=== PATIENT | female | born 1955 | race Caucasian/White ===

== ENCOUNTER 2020-01-23 13:29 | Emergency (ER) | payer MEDICARE, OTHER ==
[2020-01-23] MEDS ORDERED: BABY ASPIRIN 81 MG CHEW PO ONE (13:34)
--- NOTE | 2020-01-23 13:34 | ERPHSYRPT ---
- History of Present Illness Time Seen by Provider: 01/23/20 13:33 Historian: patient, family Exam Limitations: no limitations Physician History: This is a 64-year-old white female who has history of hypertension and presented to the walk-in clinic with complaints of nasal congestion with drainage into her chest and chest tightness. Because of the complaint of chest tightness patient was referred to the emergency department. Patient has no history herself of coronary artery disease. In the last week she did not take her temperature but has felt feverish. She has had no nausea vomiting or diarrhea. She has occasional cough when there is drainage present. She has no chest pain. She is not short of breath. She has no wheezing present. Timing/Duration: week(s) (1), worse Activities at Onset: none Quality: tightness Location: substernal, central Chest Pain Radiation: no radiation Severity of Pain-Max: none Severity of Pain-Current: none Modifying Factors: Improves With: coughing (Occasional) Associated Symptoms: cough Prior Chest Pain/Cardiac Workup: no prior chest pain Nitro Today/Relief: no nitro taken today Aspirin Treatment Today: 325 mg x 1 Allergies/Adverse Reactions: No Known Drug Allergies Allergy (Unverified 01/23/20 13:36) Home Medications: Lisinopril/Hydrochlorothiazide [Lisinopril-Hctz 20-12.5 mg Tab] 20 mg PO DAILY 01/23/20 [History] Travel Risk - International Travel Have you traveled outside of the country in past 3 weeks: No - Coronavirus Screening Are you exhibiting any of the following symptoms?: No Close contact with a COVID-19 positive Pt in past 14-21 Days: No - Review of Systems Constitutional: No Symptoms Eyes: No Symptoms Ears, Nose, & Throat: No Symptoms Respiratory: Cough Cardiac: No Symptoms Abdominal/Gastrointestinal: No Symptoms Genitourinary Symptoms: No Symptoms Musculoskeletal: No Symptoms Skin: No Symptoms Neurological: No Symptoms Psychological: No Symptoms Endocrine: No Symptoms Hematologic/Lymphatic: No Symptoms Immunological/Allergic: No Symptoms All Other Systems: Reviewed and Negative - Past Medical History Pertinent Past Medical History: Yes Neurological History: No Pertinent History ENT History: No Pertinent History Cardiac History: Hypertension Respiratory History: No Pertinent History Endocrine Medical History: No Pertinent History Musculoskeletal History: No Pertinent History GI Medical History: No Pertinent History History: No Pertinent History Psycho-Social History: No Pertinent History Female Reproductive Disorders: No Pertinent History - Past Surgical History Past Surgical History: Yes Neuro Surgical History: No Pertinent History Cardiac: No Pertinent History Respiratory: No Pertinent History Gastrointestinal: No Pertinent History Genitourinary: No Pertinent History Musculoskeletal: No Pertinent History Female Surgical History: No Pertinent History - Nursing Vital Signs Nursing Vital Signs: Initial Vital Signs Pulse Rate 104 H 01/23/20 13:30 Respiratory Rate 18 01/23/20 13:30 Blood Pressure 169/91 01/23/20 13:30 O2 Sat by Pulse Oximetry 99 01/23/20 13:30 Pain Scale Pain Intensity 0 - Physical Exam General Appearance: no apparent distress, alert, anxiety Eye Exam: PERRL/EOMI, eyes nml inspection Ears, Nose, Throat Exam: normal ENT inspection, moist mucous membranes Neck Exam: normal inspection, non-tender, supple, full range of motion Respiratory Exam: normal breath sounds, lungs clear, airway intact, No chest tenderness, No respiratory distress Cardiovascular Exam: regular rate/rhythm, normal heart sounds, normal peripheral pulses Gastrointestinal/Abdomen Exam: soft, normal bowel sounds, No tenderness Pelvic Exam: not done Rectal Exam: not done Back Exam: normal inspection, normal range of motion, No CVA tenderness, No vertebral tenderness Extremity Exam: normal inspection, normal range of motion, pelvis stable Neurologic Exam: alert, oriented x 3, cooperative, 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 On this EKG there is a short [place] interval. There is nonspecific T abnormalities diffusely.) Ordered Tests: Active Orders 24 hr Category Date Time Status Fish Receiver STAT Care 01/23/20 13:34 Active EKG-ER Only STAT Care 01/23/20 13:34 Active IV Insertion STAT Care 01/23/20 13:34 Active Pulse Oximetry (ED) STAT Care 01/23/20 13:34 Active CHEST 1 VIEW (PORTABLE) Stat Exams 01/23/20 13:34 Completed CHEST WITH CONTRAST [CT] Stat Exams 01/23/20 14:34 Completed BMP Stat Lab 01/23/20 15:25 Completed CBC W DIFF Stat Lab 01/23/20 13:40 Completed CMP Stat Lab 01/23/20 13:40 Completed D-DIMER QUANTITATIVE Stat Lab 01/23/20 13:40 Completed NT PRO BNP Stat Lab 01/23/20 13:40 Completed PROTIME WITH INR Stat Lab 01/23/20 13:40 Completed TROPONIN Q3H Lab 01/23/20 13:40 Completed TROPONIN Q3H Lab 01/24/20 01:45 Ordered Medication Summary Discontinued Medications Generic Name Dose Route Start Last Admin Trade Name Freq PRN Reason Stop Dose Admin Aspirin 324 mg 01/23/20 13:34 01/23/20 13:42 Baby Aspirin 81 Mg Chew PO 01/23/20 13:35 324 mg STAT ONE Administration Sodium Chloride 1,000 mls @ 999 mls/hr 01/23/20 14:33 01/23/20 16:55 Sodium Chloride 0.9% 1000 Ml IV 01/23/20 15:33 Infused .Q1H1M STA Infusion Sodium Chloride Confirm 01/23/20 14:40 Sodium Chloride 0.9% 1000 Ml Administered 01/23/20 14:41 Dose 1,000 mls @ ud .ROUTE .STK-MED ONE Ceftriaxone Sodium/Dextrose 1 g in 50 mls @ 100 mls/hr 01/23/20 16:55 Rocephin 1 Gm-D5w 50 Ml Bag IV 01/23/20 17:24 STAT STA Methylprednisolone Sodium Succinate 125 mg 01/23/20 16:55 Solu-Medrol 125 Mg IV 01/23/20 16:56 STAT ONE Lab/Rad Data: Laboratory Result Diagrams 01/23/20 13:40 01/23/20 15:25 Laboratory Results 01/23/20 01/23/20 01/23/20 Range/Units 15:25 13:40 13:40 WBC (4.0-10.5) K/mm3 RBC (4.1-5.4) M/mm3 Hgb (12.0-16.0) gm/dl Hct (35-47) % MCV (78-100) fl MCH (26-32) pg MCHC (32-36) g/dl RDW (11.5-14.0) % Plt Count (150-450) K/mm3 MPV (7.5-11.0) fl Gran % (36.0-66.0) % Eos # (Auto) (0-0.5) Absolute Lymphs (auto) (1.0-4.6) Absolute Monos (auto) (0.0-1.3) Lymphocytes % (24.0-44.0) % Monocytes % (0.0-12.0) % Eosinophils % (0.00-5.0) % Basophils % (0.0-0.4) % Absolute Granulocytes (1.4-6.9) Basophils # (0-0.4) PT 11.8 (9.95-12.35) SECONDS INR 1.04 (0.8-3.0) D-Dimer 893 H* (215-500) ng/mL Sodium 140 (137-145) mmol/L Potassium 3.9 (3.5-5.1) mmol/L Chloride 105 (98-107) mmol/L Carbon Dioxide 27 (22-30) mmol/L Anion Gap 12.5 (5-15) MEQ/L BUN 12 (7-17) mg/dL Creatinine 1.14 H (0.52-1.04) mg/dL Estimated GFR 50.8 ML/MIN Glucose 90 (74-106) mg/dL Calcium 8.5 (8.4-10.2) mg/dL Total Bilirubin (0.2-1.3) mg/dL AST (14-36) U/L ALT (0-35) U/L Alkaline Phosphatase (38-126) U/L Troponin I < 0.012 (0.000-0.034) ng/mL NT-Pro-B Natriuret Pep (0-900) pg/mL Serum Total Protein (6.3-8.2) g/dL Albumin (3.5-5.0) g/dL 01/23/20 01/23/20 Range/Units 13:40 13:40 WBC 6.0 (4.0-10.5) K/mm3 RBC 4.50 (4.1-5.4) M/mm3 Hgb 13.3 (12.0-16.0) gm/dl Hct 42.0 (35-47) % MCV 93.3 (78-100) fl MCH 29.6 (26-32) pg MCHC 31.7 L (32-36) g/dl RDW 13.8 (11.5-14.0) % Plt Count 274 (150-450) K/mm3 MPV 10.6 (7.5-11.0) fl Gran % 58.4 (36.0-66.0) % Eos # (Auto) 0.17 (0-0.5) Absolute Lymphs (auto) 1.73 (1.0-4.6) Absolute Monos (auto) 0.56 (0.0-1.3) Lymphocytes % 28.8 (24.0-44.0) % Monocytes % 9.3 (0.0-12.0) % Eosinophils % 2.8 (0.00-5.0) % Basophils % 0.7 (0.0-0.4) % Absolute Granulocytes 3.50 (1.4-6.9) Basophils # 0.04 (0-0.4) PT (9.95-12.35) SECONDS INR (0.8-3.0) D-Dimer (215-500) ng/mL Sodium 140 (137-145) mmol/L Potassium 3.5 (3.5-5.1) mmol/L Chloride 103 (98-107) mmol/L Carbon Dioxide 28 (22-30) mmol/L Anion Gap 12.1 (5-15) MEQ/L BUN 12 (7-17) mg/dL Creatinine 1.19 H (0.52-1.04) mg/dL Estimated GFR 48.4 ML/MIN Glucose 78 (74-106) mg/dL Calcium 9.2 (8.4-10.2) mg/dL Total Bilirubin 0.50 (0.2-1.3) mg/dL AST 23 (14-36) U/L ALT 12 (0-35) U/L Alkaline Phosphatase 70 (38-126) U/L Troponin I (0.000-0.034) ng/mL NT-Pro-B Natriuret Pep 161 (0-900) pg/mL Serum Total Protein 7.8 (6.3-8.2) g/dL Albumin 4.4 (3.5-5.0) g/dL - Progress Progress: re-examined, unchanged Air Movement: good Progress Note: 01/23/20 14:09 Chest x-ray shows no acute pulmonary process 01/23/20 17:29 CAT scan of the chest with contrast shows no pulmonary emboli and no pneumonia. There is no acute pulmonary process. Counseled pt/family regarding: lab results, diagnosis, need for follow-up, rad results - Departure Departure Disposition: Home Clinical Impression: Bronchitis Condition: Stable Critical Care Time: No Additional Instructions: Drink plenty of fluids. Take your medication as prescribed. Follow-up with your primary care doctor for persistent symptoms. Follow-up with your primary care doctor also discussed the right-sided lung and lymph nodes that are present on the CAT scan. Prescriptions: Prednisone 5 mg [Deltasone 5 mg] 5 mg PO TID #12 tablet Hydrocodone Bit/Acetaminophen [Hydrocodone-Acetaminophen Soln] 10 ml PO Q6H #120 ml Azithromycin 250 mg [Zithromax 250 MG TABLET] 250 mg PO ZPACK #6 tablet
[2020-01-23 13:47] LABS: BASOPHIL % 0.7 % (0.0-0.4); Basophil (Absolute #) 0.04 (0-0.4); Eosinophil % 2.8 % (0.00-5.0); Eosinophil (Absolute #) 0.17 (0-0.5); Hemoglobin 13.3 gm/dl (12.0-16.0); Lymphocyte (Absolute #) 1.73 (1.0-4.6); Lymphocytes % 28.8 % (24.0-44.0); Mean Cell Volume 93.3 fl (78-100); Mean Corpuscular Hemoglobin 29.6 pg (26-32); Mean Corpuscular Hgb Concent. 31.7 g/dl (32-36); Mean Platelet Volume 10.6 fl (7.5-11.0); Monocyte (Absolute #) 0.56 (0.0-1.3); Monocytes % 9.3 % (0.0-12.0); Neutrophil % 58.4 % (36.0-66.0); Platelet Count 274 K/mm3 (150-450); Red Cell Distribution Width 13.8 % (11.5-14.0)
--- NOTE | 2020-01-23 13:56 | XRAY ---
Indication: Chest tightness. Comparison: February 03, 2010. Portable chest remains hyperinflated and clear. Heart is not enlarged. Bony thorax intact again with mild degenerative changes. Impression: Nonacute hyperinflated chest.
[2020-01-23 14:02] LABS: INR 1.04 (0.8-3.0); PROTIME 11.8 SECONDS (9.95-12.35)
[2020-01-23 14:15] LABS: ALBUMIN 4.4 g/dL (3.5-5.0); ANION GAP 12.1 MEQ/L (5-15); BILIRUBIN,TOTAL 0.5 mg/dL (0.2-1.3); Calcium 9.2 mg/dL (8.4-10.2); Creatinine 1 1.19 mg/dL (0.52-1.04); Potassium 3.5 mmol/L (3.5-5.1); Total Protein 7.8 g/dL (6.3-8.2)
[2020-01-23] MEDS ORDERED: Sodium Chloride 0.9% 1000 ML 1,000 ML IV STA (14:33)
[2020-01-23] MEDS ORDERED: Sodium Chloride 0.9% 1000 ML 1,000 ML ONE (14:40)
[2020-01-23 15:46] LABS: ANION GAP 12.5 MEQ/L (5-15); Calcium 8.5 mg/dL (8.4-10.2); Creatinine 1 1.14 mg/dL (0.52-1.04); Potassium 3.9 mmol/L (3.5-5.1)
--- NOTE | 2020-01-23 16:35 | XRAY ---
Indication: Chest tightness. Elevated d-dimer. Multiple contiguous axial images obtained through the chest using 80 cc Isovue 370 contrast and PE protocol. Comparison: None There is good opacification of the pulmonary arteries to include the lobar and segmental branches. No filling defect or pulmonary embolus. Heart is not enlarged. Aorta is normal in course and caliber. No pathologic mediastinal/hilar lymphadenopathy. Lungs demonstrates minimal bibasilar atelectasis/scarring. Anterolateral right upper lobe demonstrates peripheral cluster of noncalcified nodules, largest 1.2 cm possibly granulomatous in this demographic. No infiltrate or effusion. Bony thorax intact with mild degenerative changes throughout the spine. Limited upper abdomen demonstrates a few hepatic cysts, largest 1.5 cm inferiorly. Tiny splenic calcified granuloma and cholecystectomy clips. Impression: 1. Negative pulmonary embolus. No acute cardiopulmonary abnormalities. 2. Peripheral right upper lobe noncalcified nodules possibly granulomatous. Outside comparison studies studies would be of benefit if available. If not, consider follow-up per Fleischner guidelines. 3. Incidental hepatic cysts.
[2020-01-23 16:42] VITALS: O2SAT 100
[2020-01-23] MEDS ORDERED: ROCEPHIN 1 Gm-D5w 50 ml Bag** 1 G/50 ML IVPB IV STA (16:55)
[2020-01-23] MEDS ORDERED: solu-MEDROL 125 MG IV ONE (16:55)
[2020-01-23] MEDS ORDERED: solu-MEDROL 125 MG ONE (17:33)
[2020-01-23] MEDS ORDERED: ROCEPHIN 1 Gm-D5w 50 ml Bag** 1 G/50 ML IVPB IV ONE (17:33)
[2020-01-23 17:52] VITALS: BP 161/101; PULSE 71
== END 2020-01-23 18:01 | disposition home or self-care (01) ==
LOC: ED 13:29
DX: J40 Bronchitis, not specified as acute or chronic (principal); I10 Essential (primary) hypertension
CPT/HCPCS: 36000; 36415; 71045; 71260; 80048; 80053; 83880; 84484; 85025; 85379; 85610; 93005; 93041; 94760; 96360; 96365; 96374; 96375; 99284; J0696; J2930; A9270-GY